=== PATIENT | male | born 1995 | race Caucasian/White ===

== ENCOUNTER 2022-03-12 12:49 | Emergency (ER) | payer OTHER, MEDICAID, SELFPAY ==
--- NOTE | ~2022-03-12 | XR_ITS ---
EXAMINATION: XR KNEE, RIGHT CLINICAL INFORMATION: Pain and swelling COMPARISON: None TECHNIQUE: Four views of the right knee. FINDINGS: There is a moderate-sized joint effusion present. On the AP radiographs, there is a thin calcified/bony density seen just beneath the medial femoral condyle which on the lateral radiograph projects anteriorly within the joint space. There is some increased concavity in the sulcus terminalis in the lateral femoral condyle. These findings could be the sequela of a ACL injury and avulsion fracture. MRI of the knee may be helpful for better delineation and evaluation. XR/XR knee RT 4V IMPRESSION: Probable avulsion fracture lateral femoral condyle with associated ACL tear and moderate joint effusion. MRI would be useful for further evaluation.
[2022-03-12 13:27] VITALS: BP 106/57; PULSE 100; RESP 18; TEMP 37.2; O2SAT 98; BMI 29.9
--- NOTE | 2022-03-12 16:19 | ED.LOWEXIN ---
HPI - Extremity Injury (Lower) General Chief Complaint: Extremity Injury, Lower Stated Complaint: R knee pain Time Seen by Provider: 03/12/22 16:18 History of Present Illness HPI Narrative: Patient complains of right knee pain after twisting it in basketball yesterday, he can walk on it but with a limp and is painful Related Data Previous Rx's Medication Instructions Recorded acetaminophen 500 mg tablet 1,000 mg PO QID PRN pain #30 tabs 03/12/22 ibuprofen 600 mg tablet 600 mg PO Q6H PRN pain #20 tabs 03/12/22 Allergies Allergy/AdvReac Type Severity Reaction Status Date / Time No Known Allergies Allergy Verified 03/12/22 13:26 PMFSH Social History Social History Advance Directives: No Advance Directives Information Provided: No Physical Exam Vital Signs: Vital Signs: Last Vital Signs Temp 98.9 F 03/12/22 13:27 Pulse 100 03/12/22 13:27 Resp 18 03/12/22 13:27 BP 106/57 L 03/12/22 13:27 Pulse Ox 98 03/12/22 13:27 O2 Del Method 03/12/22 13:27 BMI result Body Mass Index 29.9 Discharge Plan Discharge Clinical Impression: Acute internal derangement of knee Patient Disposition: Home, Self-Care Additional Instructions: X-ray showed a possible avulsion fracture which might I texted with Dr. Mooney have happened when a piece of ligament tore so you may have an ACL tear and have water on the knee. You should follow with orthopedist as you may need a surgical repair for this, so follow with orthopedist for probable MRI and further evaluation I texted with Dr. Mooney the orthopedist, and he wants to see you in his office this week, so make sure when you talk to the certified legal secretary specialist you tell them it was discussed with Dr. Mooney any wants disease see you in the office this week Prescriptions: New acetaminophen 500 mg tablet 1,000 mg PO QID PRN (Reason: pain) Qty: 30 0RF ibuprofen 600 mg tablet 600 mg PO Q6H PRN (Reason: pain) Qty: 20 0RF Referrals: Danilo Mooney MD [Physician] - (Avulsion fracture femoral condyle with probable ACL tear)
== END 2022-03-12 16:51 | disposition home or self-care (01) ==
PROVIDERS: Emergency Provider Emergency Medicine
DX: M23.91 Unspecified internal derangement of right knee (principal); M25.561 Pain in right knee; M25.461 Effusion, right knee
CPT/HCPCS: 73564; 99282; 99283

== ENCOUNTER → 2022-03-29 13:51 | Outpatient (BNVA) | payer OTHER, SELFPAY | PROVIDERS: Visit Provider Orthopaedic Surgery | DX: M23.91 Unspecified internal derangement of right knee (principal) | CPT/HCPCS: 99202 ==

== ENCOUNTER 2022-04-05 17:23 | Outpatient (REF) | payer OTHER, SELFPAY ==
--- NOTE | ~2022-04-05 | MR_ITS ---
EXAMINATION: MR KNEE WITHOUT CONTRAST, RIGHT CLINICAL INFORMATION: Right knee injury. COMPARISON: Radiographs 03/12/2022. TECHNIQUE: MRI of the knee without contrast was performed using routine sequences on a high-field scanner. FINDINGS: MENISCI: MEDIAL MENISCUS: Intact. LATERAL MENISCUS: Complex tear of the posterior horn with much of the inner margin/undersurface flipped posteriorly. LIGAMENTS: CRUCIATE: Anterior cruciate ligament is completely torn. Torn distal fibers are displaced anteriorly. The posterior cruciate ligament is intact. COLLATERAL: Edema extends along the MCL and fibular collateral ligament compatible with grade 1 sprains. Mild strain of the popliteus muscle. EXTENSOR MECHANISM: Intact. ARTICULAR CARTILAGE/BONE: PATELLOFEMORAL COMPARTMENT: Normal. MEDIAL COMPARTMENT: There is an impaction fracture at the posterior aspect of the tibia. No overlying cartilage defect. LATERAL COMPARTMENT: There is an impaction fracture involving the anterolateral aspect of the femoral condyle with focal concavity and marrow edema. Small impaction fracture at the posterior aspect of the tibia with a small overlying chondral defect. JOINT FLUID AND BURSAE: Moderate joint effusion. MR/MR knee RT wo con IMPRESSION: Complete ACL tear with impaction fractures of the lateral femoral condyle as well as the medial and lateral tibia posteriorly. Focal cartilage irregularity superficial to the posterolateral tibial injury. Moderate joint effusion. Complex tear of the posterior horn of the lateral meniscus with a large portion of the meniscus displaced into the posterolateral recess. Grade 1 MCL and fibular collateral ligament sprains.
== END 2022-04-05 17:24 | disposition home or self-care (01) ==
LOC: HO.MRI 17:23
PROVIDERS: Visit Provider Orthopaedic Surgery
DX: M23.91 Unspecified internal derangement of right knee (principal)
CPT/HCPCS: 73721

== ENCOUNTER → 2022-05-03 08:45 | Outpatient (BNVA) | payer OTHER, SELFPAY | PROVIDERS: Visit Provider Orthopaedic Surgery | DX: S83.511A Sprain of anterior cruciate ligament of right knee, initial encounter (principal) | CPT/HCPCS: 99212 ==

== ENCOUNTER → 2022-06-11 14:21 | Outpatient (BNVA) | payer OTHER, MEDICAID, SELFPAY | PROVIDERS: Visit Provider Physician Assistant | DX: Z01.818 Encounter for other preprocedural examination (principal); S83.511A Sprain of anterior cruciate ligament of right knee, initial encounter | CPT/HCPCS: 99212 ==

== ENCOUNTER → 2022-06-20 07:02 | Day surgery (SDC) | payer OTHER, SELFPAY ==
[2022-06-14 12:50] VITALS: BMI 29.9
--- NOTE | 2022-06-19 10:44 | P.CONAN_ITS ---
HPI - Anesthesia Eval Consult details Narrative: 27yo M for Right ACL reconstruction autograft with allograft on standby [facility] Active Problems Active Problems: All Active Problems (Updated 06/14/22 @ 12:48 by Kayla Ochoa, GEORGETTE) Internal derangement of right knee (Acute) Right ACL tear (Acute) Past Medical History Medical History (Updated 06/14/22 @ 12:48 by Kayla Ochoa RN) No pertinent past medical history Surgical History Surgical History (Updated 06/14/22 @ 12:48 by Kayla Ochoa RN) No pertinent past surgical history Social History Social History Are you a primary health care recruiter to a significant other at home: No Do you presently have visiting nurse or other home services: No Patient Tobacco Use Status: Never used Tobacco Meds Allergies Allergy/AdvReac Type Severity Reaction Status Date / Time No Known Allergies Allergy Verified 06/14/22 12:49 Exam Exam Date and Time: June 19, 2022 1044 Height,Weight and Vital Signs: Height 5 ft 11 in Weight 97.522 kg Assessment and Plan Assessment Anesthesia Assessment: Chart Reviewed
--- NOTE | 2022-06-20 07:37 | PC.NURSE ---
pt had temp of 101.9 orally and temporal. md at bedside and surgery postponed.
== END ==
PROVIDERS: Visit Provider Orthopaedic Surgery
DX: S83.511A Sprain of anterior cruciate ligament of right knee, initial encounter (principal); Z53.09 Procedure and treatment not carried out because of other contraindication; R50.9 Fever, unspecified

== ENCOUNTER 2022-06-27 08:03 | Day surgery (SDC) | payer OTHER, SELFPAY ==
--- NOTE | 2022-06-26 09:36 | P.CONAN_ITS ---
HPI - Anesthesia Eval Consult details Narrative: 27yo M for Right ACL Reconstruction with Allograft PMFSH Active Problems Active Problems: All Active Problems (Updated 06/14/22 @ 12:48 by Kayla Ochoa RN) Internal derangement of right knee (Acute) Right ACL tear (Acute) Past Medical History Medical History No pertinent past medical history Surgical History Surgical History (Updated 07/05/22 @ 11:10 by Keara Crystal) History of testicular surgery No pertinent past surgical history Social History Social History Are you a primary customer care assistant to a significant other at home: No Do you presently have visiting nurse or other home services: No Patient Tobacco Use Status: Never used Tobacco Meds Allergies Allergy/AdvReac Type Severity Reaction Status Date / Time No Known Allergies Allergy Verified 07/05/22 10:52 Exam Exam Date and Time: June 26, 2022 0936 Assessment and Plan Assessment Anesthesia Assessment: Chart Reviewed
[2022-06-27] VITALS (16 sets, daily range): BP systolic 115–175; BP diastolic 71–104; PULSE 57–76; RESP 14–18; TEMP 36.2–36.6; O2SAT 96–100; BMI 29.9
[2022-06-27] MEDS: Lactated Ringers 1,000 ML 100 ML IVCONT (08:18)
--- NOTE | 2022-06-27 09:22 | MHC.SHP ---
Pre-Procedural Eval Section A Date of Service: 06/27/22 The patient is an INPATIENT: No Changes since office visit: No Cold of Flu in the past 2 weeks, No New Medical Problems, No Changes in Medication and No Patient answered all questions The History & Physical has been completed within 30 days and I have reviewed it.: Yes Section B Chief Complaint: Sprain of anterior cruciate ligament of right knee Allergies: Allergies Allergy/AdvReac Type Severity Reaction Status Date / Time No Known Allergies Allergy Verified 06/14/22 12:49 Plan I have reviewed the history and physical and performed a pertinent physical examination on my patient. No changes have occurred unless specified. Time Spent With Patient Time: Total time managing care of this patient today ____ minutes.
--- NOTE | 2022-06-27 12:04 | P.BOP_ITS ---
Brief Operative Note Date of Service: 06/27/22 Pre-op diagnosis: Right ACL tear Post-op diagnosis: other (Right ACL tear and right lateral meniscus tear) Procedure: Right ACL reconstruction with autograft and allograft with lateral meniscus repair Implants: Allograft posterior tibial tendon with portillo and nephew button and 25x10 tibial interference screw with portillo and nephew meniscal cinch x 2 Surgeon: Danilo Mooney MD Anesthesia: GETA and regional Was an News Reporter used for this Procedure?: Yes News Reporter: Silvia Fernandez Estimated blood loss (mL): 25 IV fluids (mL): 1,000 Pathology: none sent Condition: stable Disposition: PACU
[2022-06-27] MEDS: oxyCODONE HCl Immed Release 5 MG TABLET PO ×2 (12:31→12:48)
[2022-06-27] MEDS: fentaNYL citrate/PF 100 MCG/2 ML VIAL 50 MCG IVPUSH ×3 (12:32→13:12)
[2022-06-27] MEDS: HYDROmorphone HCl 0.5 MG/0.5 ML SYRINGE 0.25 MG IVPUSH (14:02)
--- NOTE | 2022-06-27 14:25 | W.PM.OPN ---
Operative Note Operative Note Date of Service: 06/27/22 Narrative: Date of Service: 06/27/22 Pre-op diagnosis: Right ACL tear Post-op diagnosis: other (Right ACL tear and right lateral meniscus tear) Procedure: Right ACL reconstruction with autograft and allograft with lateral meniscus repair Implants: Allograft posterior tibial tendon with portillo and nephew button and 25x10 tibial interference screw with portillo and nephew meniscal cinch x 2 Surgeon: Danilo Mooney MD Anesthesia: GETA and regional Was an Supervisor Agency Appointments used for this Procedure?: Yes Supervisor Agency Appointments: Silvia Fernandez Estimated blood loss (mL): 25 IV fluids (mL): 1,000 Pathology: none sent Condition: stable Disposition: PACU Procedure in detail: Patient was brought to the operating room placed supine on the arthroscopic table and prepped and draped in standard sterile fashion. A time-out was called to identify proper site proper procedure proper surgeon and IV antibiotics per weight were administered. Under anesthesia she had a + pivot shift. I began by making a 2 cm oblique incision over the pes anserine tendons. The sartorius fascia was identified and incised. The Semitendinosis and gracilis were then stripped in standard fashion and the distal attachment was then cut. The grafts were prepared on the back table. I then exsanguinated the limb and insufflated the tourniquet to 300 mm Hg. Then made a standard anterolateral stab incision. The knee was insufflated with water and 30 degree arthroscope was placed. There was grade 0 fibrillations of the patella but overall suprapatellar pouch and the gutters were clean. I descended into the medial compartment where I made my far medial portal under direct visualization. There was normal medial meniscus and the cartialge surfaces were normal. There was an empty wall sign and the lateral meniscus was torn at the junction of the body and posterior honrn and partially torn at the root without instability. I used a meniscal cinch ( Jenni) to repair both tears. The partial root tear without instability was an intra-substance repair but the horn/body tear was repaired to the ccapsule just anterior to the popliteus. I then ere-xamined the notch where there was a + empty wall sign and an intact PCL. There was a large stump which I debrided and the tibial acl footprint and performed a limited notchplasty. I then, through a far AM portal and a 7mm behind the back guide, drilled a k-wire through the LFC with the knee in hyper-flexion. I measured the tunnel as a 37 and then after sizing the graft on the back table drilled a 25 mm tunnel with an 10 mm reamer. The final 12 mm was drilled with a 4.5 reamer. I then pulled a suture through the femoral tunnel and turned my attention to the tibia. I did examine the femoral tunnel and was satisfied with the posterior wall and its location low and medial at the anatomic footprint. I placed my tibial drill guide in 55 deg and, through a anteromedial inc just lateral to the tibial tubercle placed a k-wire into the notch exiting just medial to the anterior horn insertion of the lateral meniscus. I then over-reamed with an 11 reamer. I cleaned the tunnels up with a shaver. The autograft measured onlay a 7.0 and so the allograft was opened and added to the autograft on the back table. On the back table I whip-stitched the allograft to fit through an 10 aperture and attached the femoral button to the looped end. I placed the graft on 15lbs of tension for 10 minutes. I then passed the allograft through the tibial tunnel and femoral tunnel and flipped the button. I cycled the knee about 10-15 cycles and then placed a tibial interference screw with the knee in hyper-extension while holding the graft taught. Once I was satisfied that the interference screw was buried I examined the ACL and the medial meniscus repair. The repair was stable and the ACL was not impinging and there was a negative pivot shift. I then removed all instrumentation and closed the incisions with nylon. Patient was then placed in sterile dressings and a hinged knee brace. He was then extubated brought recovery room stable condition. There were no known complications.
== END 2022-06-27 15:45 | disposition home or self-care (01) ==
PROVIDERS: Visit Provider Orthopaedic Surgery
PROC: (CPT 27428; principal; 2022-06-27 10:50)
DX: S83.511A Sprain of anterior cruciate ligament of right knee, initial encounter (principal); S83.281A Other tear of lateral meniscus, current injury, right knee, initial encounter; X58.XXXA Exposure to other specified factors, initial encounter; Y93.9 Activity, unspecified; Y92.9 Unspecified place or not applicable; Y99.8 Other external cause status
CPT/HCPCS: 29881; 29888; C1713; C1769; J0171; J0690; J1100; J1170; J2250; J2405; J2795; J3010

== ENCOUNTER 2022-07-05 05:47 | Outpatient (REF) | payer OTHER, SELFPAY ==
--- NOTE | ~2022-07-05 | XR_ITS ---
EXAMINATION: XR KNEE, RIGHT CLINICAL INFORMATION: Knee pain COMPARISON: Right knee radiographs 03/12/2022, MRI right knee 04/05/2022 TECHNIQUE: AP and lateral of the right knee. FINDINGS: There are postoperative changes consistent with ACL repair. There is no interval fracture or dislocation or destructive process. No periostitis. Moderate to large suprapatellar effusion again seen. XR/XR knee RT 2V IMPRESSION: 1. Postoperative changes. Moderate to large suprapatellar effusion. 2. No acute fracture or dislocation or destructive process.
== END 2022-07-05 05:48 | disposition home or self-care (01) ==
LOC: HO.HOSX 05:47
PROVIDERS: Visit Provider Physician Assistant
DX: M25.561 Pain in right knee (principal); Z98.890 Other specified postprocedural states
CPT/HCPCS: 73560

== ENCOUNTER 2022-07-31 13:00 | Outpatient (RCR) | payer OTHER, SELFPAY ==
--- NOTE | 2022-06-29 16:26 | MHC.PT.EP ---
[facility] [place] Office [place] Office [place] Office [address] Sandhay Johnson [address] [phone] F: [phone] F: [phone] F: [phone] F: [phone] Physical Therapy Plan of Care Date of Evaluation: Date of Surgery: 06/27/22 Diagnosis: R ACL RECONSTUCTION, LAT MENISCUS REPAIR, IMPACTION FRACTURES OF LAT FEMORAL CONDYLE, Assessment: Pt IS 27 YO M REFERRED TO PT FROM DR CASEY WITH R ACL RECONSTRUCTION. ON 06/27/22 (2 DAYS AGO). PRESENTS TO PT WITH BRACE ON. 2 OF THE STRAPS OPENED BECAUSE OF PRESSURE/SWELLING. Pt REPORTS HE HAS BEEN SAI FOR YEARS WITH SOME GENERALIZED KNEE PAIN. REPORTS PLAYING BASKETBALL AND HAD A TWISTING INJURY AND HEARD A POP ON 03/11/22. THEN WENT TO ER THE NEXT DAY, XRAY, REFERRED TO ORTHO. UNDERWENT ACL RECONSTRUCTION (WITH AUTOGRAFT AND ALLOGRAFT) AND LAT MENISCUS REPAIR ON 06/27/[address] CASEY. WENT HOME SAME DAY (REPORTS DOES NOT REMEMBER MANY INSTRUCTIONS BECAUSE OF MED/ANESTHESIA. Pt PRESENTS 2 DAYS PO WITH SIGNIF PAIN AND SWELLING WITH LIMTED R KNEE ROM AND LIMITED LE STRENGTH. SHOULD BENEFIT FROM PT TO HELP IMPROVE OVERALL LE ROM AND STRENGTH AND FUNCTIONAL MOBILITY Frequency and Duration: The patient will be seen 2X/WK X 8 WKS Short Term Goals: 1. INCREASED AWARENESS KNEE CARE 2. DECREASED SWELLING R KNEE 3. IMPROVED GT PATTERN WITH LRAD/BRACE (KNEE SUPPORT) 4. DECREASED R KNEE PAIN AT LEAST 50% WITH ADLS 5. R KNEE ROM 0-90 AT 4 WKS Custodial Goals: 1. ROM R KNEE 0-130 DEGREES 2. I HEP WITH DC EX PLAN 3. 5/5 STRENGTH R QUAD/HS Treatment Plan: Modalities to reduce pain, spasms and effusion. Manual therapy to restore motion and function. Therapeutic exercise to improve strength and flexibility. Neuromuscular re-education for posture and balance. Therapeutic activities to return to functional activities of daily living. Electronically signed by: Please sign and return to therapist. Thank you for your referral.
--- NOTE | 2022-10-22 13:28 | MHC.PT.DC ---
[facility] [place] Office [place] Office [place] Office [address] Sandhya Johnson [address] [phone] F: [phone] F: [phone] F: [phone] F: [phone] Physical Therapy Discharge Report Diagnosis: R ACL RECONSTUCTION, LAT MENISCUS REPAIR, IMPACTION FRACTURES OF LAT FEMORAL CONDYLE, Date of Surgery: 06/27/22 Date of Evaluation: 06/29/22 Date of Discharge: 09/11/22 Treatments to Date: 4 Cancellations to Date: No Shows to Date: Discharge Status: Discharge Summary: Pt SEEN FOR INIT EVAL AND 3 VISITS. PER LAST NOTE ASSESSMENT ON 07/31/22 ALTHOUGH Pt HAS NOT BEEN HERE IN 2 WEEKS, HIS ROM LOOKS GOOD AND NO QUAD LAG NOTED . Pt THEN NO SHOWED LAST 2 SCHEDULED APPTS Electronically signed by: Please sign and return to therapist. Thank you for your referral.
== END 2022-10-22 13:30 | disposition home or self-care (01) ==
LOC: HO.PT 13:00
PROVIDERS: Visit Provider Orthopaedic Surgery
DX: S83.511D Sprain of anterior cruciate ligament of right knee, subsequent encounter (principal)
CPT/HCPCS: 97110; 97116; 97162; 97535

== ENCOUNTER 2023-11-22 10:06 | Emergency (ER) | payer OTHER, SELFPAY ==
[2023-11-22 10:14] VITALS: BP 132/100; PULSE 118; RESP 16; TEMP 40.1; O2SAT 98; BMI 31.6
--- NOTE | 2023-11-22 10:44 | PC.NURSE ---
Pt self presents with reports of right eye ?infection x 3 days. Also endorsing fever, body aches, pain upon swallowing, nausea no vomiting and diarrhea. Denies abd pain. Denies sick contacts. Throat reddened, no obvious exudate noted. Right sclera reddened, no discharge noted. Awaiting primary provider maria teresa, aware of plan of care.
[2023-11-22] MEDS: Acetaminophen 325 MG TABLET 975 MG PO (10:53)
[2023-11-22] MEDS: Ibuprofen 600 MG TABLET PO (10:53)
[2023-11-22 11:01] VITALS: TEMP 39.4
--- NOTE | 2023-11-22 11:03 | PC.NURSE ---
Pt medicated per MAR, viral swabs obtained sent for processing.
[2023-11-22 11:06] LABS: IDNOW Serial# 08D9AD1C; Strep A Nucleic Acid Negative (Negative)
--- NOTE | 2023-11-22 11:24 | ED.EYEPROB ---
HPI - Eye Problem General Chief complaint: Eye Problems Stated complaint: pink eye, fever, bodyaches Time Seen by Provider: 11/22/23 10:39 Source: patient Mode of arrival: ambulatory Limitations: no limitations Related Data Previous Rx's ?Medication ?Instructions ?Recorded morphine 15 mg tablet,extended 15 mg PO Q12H pain severe 3 days 06/27/22 release (MS Contin) #6 tabs oxycodone-acetaminophen 5 mg-325 1 tab PO Q4-6H PRN pain (scale 06/27/22 mg tablet (Percocet) score 4-6) 7 days #42 tabs ibuprofen 800 mg tablet 800 mg PO Q8H PRN pain 30 days #90 07/05/22 tabs oxycodone-acetaminophen 5 mg-325 1 tab PO Q8H PRN pain 7 days #21 07/05/22 mg tablet (Percocet) tabs Allergies Allergy/AdvReac Type Severity Reaction Status Date / Time No Known Allergies Allergy Verified 11/22/23 10:15 [facility] Past Medical History Medical History No pertinent past medical history Surgical History History of testicular surgery No pertinent past surgical history Social History Social History Are you a primary customer care specialist to a significant other at home: No Do you presently have visiting nurse or other home services: No Patient Tobacco Use Status: Never used Tobacco Smoked in Last 30 Days: No Use of substances other than those prescribed or required for medical reasons: No Advance Directives: No Advance Directives Information Provided: No Physical Exam Vital Signs: Vital Signs: Last Vital Signs Temp 103.0 F H 11/22/23 11:01 Pulse 118 H 11/22/23 10:14 Resp 16 11/22/23 10:14 BP 132/100 H 11/22/23 10:14 Pulse Ox 98 11/22/23 10:14 O2 Del Method Room Air 11/22/23 10:14 BMI result Body Mass Index 31.6 Medications Administered Discontinued Medications Generic Name Dose Route Start Last Admin Trade Name Freq PRN Reason Stop Dose Admin Acetaminophen 975 mg 11/22/23 10:40 11/22/23 10:53 Acetaminophen 325 Mg Tablet PO 11/22/23 10:41 975 mg ONCE ONE Administration Ibuprofen 600 mg 11/22/23 10:40 11/22/23 10:53 Ibuprofen 600 Mg Tablet PO 11/22/23 10:41 600 mg ONCE ONE Administration Medical Decision Making Lab Data Labs: Lab Results 11/22/23 Range/Units 10:48 S. pyogenes GrpA ELIZABETH Negative (Negative) Discharge Plan Discharge Prescriptions: No Action oxycodone-acetaminophen [Percocet] 5-325 mg tablet 1 tab PO Q4-6H PRN (Reason: pain (scale score 4-6)) 7 Days Qty: 42 0RF Rx Instructions: Partial Fill upon patient request. morphine [MS Contin] 15 mg tablet extended release 15 mg PO Q12H 3 Days Qty: 6 0RF Rx Instructions: Partial Fill upon patient request. oxycodone-acetaminophen [Percocet] 5-325 mg tablet 1 tab PO Q8H PRN (Reason: pain) 7 Days Qty: 21 0RF Rx Instructions: Partial Fill upon patient request. ibuprofen 800 mg tablet 800 mg PO Q8H PRN (Reason: pain) 30 Days Qty: 90 3RF Print Language: Slovenian
--- NOTE | 2023-11-22 11:33 | ED.URI ---
HPI - URI/Sore Throat General Chief Complaint: Eye Problems Stated Complaint: pink eye, fever, bodyaches Time Seen by Provider: 11/22/23 10:39 Source: patient Mode of arrival: ambulatory Limitations: no limitations History of Present Illness HPI Narrative: Patient is a 28-year-old male presents emergency department for evaluation. He reports right eye redness with pus-like drainage and I closed shut in the morning for 4 days. Overall the eye appears to be improving. However, he has been experiencing intermittent fevers, body aches, nausea but no vomiting. Reports concern there is swelling to the right side of his jaw. denies chest pain, shortness of breath, difficulty breathing, difficulty swallowing, sore throat, neck pain. Related Data Previous Rx's ?Medication ?Instructions ?Recorded morphine 15 mg tablet,extended 15 mg PO Q12H pain severe 3 days 06/27/22 release (MS Contin) #6 tabs oxycodone-acetaminophen 5 mg-325 1 tab PO Q4-6H PRN pain (scale 06/27/22 mg tablet (Percocet) score 4-6) 7 days #42 tabs ibuprofen 800 mg tablet 800 mg PO Q8H PRN pain 30 days #90 07/05/22 tabs oxycodone-acetaminophen 5 mg-325 1 tab PO Q8H PRN pain 7 days #21 07/05/22 mg tablet (Percocet) tabs polymyxin B sulfate 10,000 1 drp ophthalmic (eye) Q3H 7 days 11/22/23 unit-trimethoprim 1 mg/mL eye drops #10 mL Allergies Allergy/AdvReac Type Severity Reaction Status Date / Time No Known Allergies Allergy Verified 11/22/23 10:15 Review of Systems Review of Systems: Yes all other systems are reviewed and are negative [facility] Past Medical History Attestation statement: The following information was validated with the patient. Source: old records reviewed Medical History No pertinent past medical history Surgical History History of testicular surgery No pertinent past surgical history Social History Social History Are you a primary patient care secretary to a significant other at home: No Do you presently have visiting nurse or other home services: No Patient Tobacco Use Status: Never used Tobacco Smoked in Last 30 Days: No Use of substances other than those prescribed or required for medical reasons: No Advance Directives: No Advance Directives Information Provided: No Physical Exam Vital Signs: Vital Signs: Last Vital Signs Temp 103.0 F H 11/22/23 11:01 Pulse 118 H 11/22/23 10:14 Resp 16 11/22/23 10:14 BP 132/100 H 11/22/23 10:14 Pulse Ox 98 11/22/23 10:14 O2 Del Method Room Air 11/22/23 10:14 BMI result Body Mass Index 31.6 Appearance: Alert.?Oriented to person, place and time. No acute distress.?Normal affect. Eyes: Pupils equal, round and reactive to light.? EOMI. No nystagmus. Right sclera injected, conjunctival erythema, no purulence at this time. ENT: TM normal bilaterally. No vesicular eruptions or drainage from the external canal. No auricle or tragus tenderness. No mastoid tenderness. Pharynx normal, No erythema, exudates. Uvula is midline. No trismus. No drooling. Full range of motion to the jaw, no appreciable external swelling. No dental caries or dental abscess.? Neck: Normal inspection.? Neck supple.??No cervical adenopathy CVS: Heart sounds normal. Normal heart rate and rhythm.? Pulses normal.?? Respiratory: No respiratory distress.? Lung sounds clear to auscultation bilaterally?? Abdomen: Soft and non-tender. Normoactive bowel sounds. Skin: Skin warm and dry.? Normal skin color.? ? Extremities: No lower extremity edema.? Neuro: Moves all extremities spontaneously. Sensation intact bilaterally. No motor deficits. Ambulates with normal steady gait. Medications Administered Discontinued Medications Generic Name Dose Route Start Last Admin Trade Name Freq PRN Reason Stop Dose Admin Acetaminophen 975 mg 11/22/23 10:40 11/22/23 10:53 Acetaminophen 325 Mg Tablet PO 11/22/23 10:41 975 mg ONCE ONE Administration Ibuprofen 600 mg 11/22/23 10:40 11/22/23 10:53 Ibuprofen 600 Mg Tablet PO 11/22/23 10:41 600 mg ONCE ONE Administration Medical Decision Making Medical Decision Making MDM Narrative: Patient is a 28-year-old male, presenting for evaluation of u reported right eye infection, fevers, nausea, and body aches. Denies any known sick contacts. COVID- 19/influenza / RSV testing are negative today. Strep a testing negative. On exam does have findings consistent with bacterial conjunctivitis to the right eye without evidence of septal or preseptal cellulitis. Discussed warm moist compresses and Polytrim antibiotic drops which were sent to pharmacy. He presented febrile and tachycardic, received acetaminophen/ ibuprofen with improvement, pulse in the 70s, temp 100.1 degrees. I suspect symptoms are secondary to a viral syndrome. His abdominal examination is benign, he has known complaints to suggest urinary tract infection. No cough or shortness of breath to Suggest lower respiratory infection. overall he is well-appearing. Speaking clear full sentences, ambulatory with steady gait. Discussed conservative treatment including rest, hydration, Tylenol/ibuprofen as needed for fever and body aches, saline nasal spray, humidifier, [id number] cold medication. Advised to follow-up with primary care provider as needed, discussed reasons to return back to the emergency department. All questions were answered. Patient discharged home in stable condition. Provided with a return to work/school note. Differential Diagnosis Differential Diagnoses: The differential diagnosis associated with the presentation includes ( See narrative above) Admission/Observation Consideration of admission/observation: Escalation of care including admission/observation considered ( see narrative above) Lab Data MDM Lab Attestation statement: I reviewed the patient's lab results. ( see narrative above) Labs: Lab Results 11/22/23 Range/Units 10:48 Influenza Type A (PCR) NEGATIVE (Negative) Influenza Type B (PCR) NEGATIVE (Negative) RSV RNA Qual (PCR) NEGATIVE (Negative) SARS-CoV-2 RNA (RT-PCR) NEGATIVE (Negative) S. pyogenes GrpA ELIZABETH Negative (Negative) Tests considered The following testing was considered but not selected: See narrative above Prescription Management I considered prescription management with: Pain Medication ( acetaminophen/ibuprofen) Discharge Plan Discharge Clinical Impression: Bacterial conjunctivitis Patient Disposition: Home, Self-Care Instructions: Conjunctivitis (ED) Additional Instructions: Continue applying warm moist compresses and cleansing the eye. Prescription for antibiotic eyedrops was sent to your pharmacy, but 1 drop into the eye every 3 hours while awake. You can take ibuprofen 200 mg, 3 tablets (600mg) every 6-8 hours as needed for pain, in addition to Tylenol 500 mg, 2 tablets (1,000mg) every 4-6 hours as needed for pain, but not to exceed 3 doses daily (3,000mg).? your testing for COVID- 19/ flu /RSV were negative today. Strep throat testing was also negative. If you continue to have symptoms over the next couple of days you may consider having repeat testing for COVID - 19. Prescriptions: New polymyxin B sulf-trimethoprim 10,000 unit- 1 mg/mL drops 1 drp ophthalmic (eye) Q3H 7 Days Qty: 10 0RF Rx Instructions: while awake; do not exceed 6 doses in 24 hours No Action oxycodone-acetaminophen [Percocet] 5-325 mg tablet 1 tab PO Q4-6H PRN (Reason: pain (scale score 4-6)) 7 Days Qty: 42 0RF Rx Instructions: Partial Fill upon patient request. morphine [MS Contin] 15 mg tablet extended release 15 mg PO Q12H 3 Days Qty: 6 0RF Rx Instructions: Partial Fill upon patient request. oxycodone-acetaminophen [Percocet] 5-325 mg tablet 1 tab PO Q8H PRN (Reason: pain) 7 Days Qty: 21 0RF Rx Instructions: Partial Fill upon patient request. ibuprofen 800 mg tablet 800 mg PO Q8H PRN (Reason: pain) 30 Days Qty: 90 3RF Referrals: Physician,Unknown J [Primary Care Provider] - Stand Alone Forms: Work/School Release Interventions: ED Discharge Assessment Last Done: 11/22/23 11:47 Print Language: Cambodian
[2023-11-22 11:38] LABS: Influenza A PCR NEGATIVE (Negative); Influenza B PCR NEGATIVE (Negative); Resp Syncy Virus RNA Qual PCR NEGATIVE (Negative); SARS COV2 PCR INHOUSE NEGATIVE (Negative)
[2023-11-22 11:47] VITALS: BP 121/71; PULSE 76; RESP 20; TEMP 37.8; O2SAT 98
== END 2023-11-22 11:48 | disposition home or self-care (01) ==
PROVIDERS: Nurse Practitioner Family; Emergency Provider Student in an Organized Health Care Education/Training Program
DX: H10.31 Unspecified acute conjunctivitis, right eye (principal); J02.9 Acute pharyngitis, unspecified; M79.10 Myalgia, unspecified site; H57.11 Ocular pain, right eye; Z11.52 Encounter for screening for COVID-19; Z20.822 Contact with and (suspected) exposure to COVID-19
CPT/HCPCS: 0241U; 87651; 99283; 99284